=== PATIENT | female | born 1985 | race Caucasian/White ===

== ENCOUNTER 2017-07-13 12:26 | Emergency (ER) | payer SELFPAY ==
[2017-07-13 12:27] VITALS: BP 150/64; PULSE 70; RESP 16; TEMP 36.1; O2SAT 97; BMI 37.5
--- NOTE | 2017-07-13 13:29 | ED.RN ---
DR WENT TO THE ROOM AND PT WAS GONE.
== END 2017-07-13 13:29 | disposition left against medical advice (07) ==
PROVIDERS: Emergency Provider Emergency Medicine; Family Provider Family Medicine; PCP Family Medicine
DX: M25.512 Pain in left shoulder (principal)